=== PATIENT | female | born 1990 | race Caucasian/White ===

== ENCOUNTER 2017-04-24 16:19 | Emergency (ER) | payer BC ==
[2017-04-24 16:28] VITALS: RESP 16
[2017-04-24] MEDS ORDERED: NS 1,000 ML IV ONE (17:04)
[2017-04-24 17:33] LABS: % IMMATURE GRANULYOCYTES 0.4 % (0.0-1.1); ABSOLUTE IMMATURE GRANULOCYTES 0.05 10^3/uL (0.00-0.10); ADD DIFF? NO; ADD MORPH? NO; ADD SCAN? NO; ATYPICAL LYMPHOCYTE FLAG 20 (0-99); FRAGMENT RBC FLAG 0 (0-99); HEMATOCRIT 44.1 % (38.0-47.0); HEMOGLOBIN 14.4 g/dL (12.6-16.3); LEFT SHIFT FLG 0 (0-99); LIPEMIA HEMOLYSIS FLAG 80 (0-99); MEAN CELL HEMOGLOBIN 28.3 pg (27.9-34.1); MEAN CELL HEMOGLOBIN CONCENTR. 32.7 g/dL (32.4-36.7); MEAN CELL VOLUME 86.6 fL (81.5-99.8); MEAN PLATELET VOLUME 10.5 fL (8.7-11.7); PLATELET CLUMPS FLAG 10 (0-99); PLATELET COUNT 302 10^3/uL (150-400); RED BLOOD CELL COUNT 5.09 10^6/uL (4.18-5.33); RED CELL DISTRIBUTION WIDTH 13.9 % (11.5-15.2)
[2017-04-24 17:36] LABS: COLOR YELLOW; LEUKOCYTE ESTERASE,URINE 3+ (NEGATIVE); NITRITE,URINE NEGATIVE (NEGATIVE)
[2017-04-24 17:38] LABS: MUCUS 2+ /lpf (NONE-1+); WBC,URINE 50-182 /hpf (0-3)
[2017-04-24 17:49] LABS: ANION GAP 11 mEq/L (8-16); CALCIUM 9.9 mg/dL (8.5-10.4); CARBON DIOXIDE 25 mEq/l (22-31); CHLORIDE 101 mEq/L (97-110); CREATININE 0.9 mg/dL (0.6-1.0); GLOMERULAR FILTRATION RATE > 60; GLUCOSE 86 mg/dL (70-100); SODIUM 137 mEq/L (134-144)
[2017-04-24] MEDS ORDERED: fentaNYL 100 MCG/2 ML INJ IVP ONE (18:42)
[2017-04-24 19:42] VITALS: O2SAT 96
--- NOTE | 2017-04-24 20:10 | EDPHY ---
H & P Stated Complaint: pelvic cramping, mild spotting since this am Time Seen by Provider: 04/24/17 17:02 HPI/ROS: Chief complaint: Pelvic pain with vaginal bleeding History of present illness: This is a 27-year-old female who presents to the emergency department for evaluation of pelvic pain and vaginal bleeding. Patient has had pelvic pain for a number of days. However, it worsened this morning after sexual intercourse. Further, she noted bright red blood from the vagina after sexual intercourse. She is not currently on her menstrual cycle. The pain has been persistent although the bleeding has resolved. She denies other associated signs or symptoms including no fevers, no nausea, vomiting or diarrhea, no urinary symptoms, no diarrhea or constipation. She does have a ParaGard IUD in place that has been in place for nine and a half years and states she needs to get it out. She has an appointment with an OBGYN but it is not until early May. Review of systems: A 10 point review of systems was obtained and other than described above was negative - Personal History LMP (Females 10-55): 8-14 Days Ago Current Tetanus/Diphtheria Vaccine: Unsure Current Tetanus Diphtheria and Acellular Pertussis (TDAP): Unsure - Medical/Surgical History Hx Asthma: Yes Hx Chronic Respiratory Disease: No Hx Diabetes: No Hx Cardiac Disease: No Hx Renal Disease: No Hx Cirrhosis: No Hx Alcoholism: No Hx HIV/AIDS: No Hx Splenectomy or Spleen Trauma: No Other PMH: no abd surgeries. L5s1 microdisectomy 2006. asthma - Social History Smoking Status: Never smoked - Physical Exam Exam: General Appearance: Alert, nontoxic. Eyes: Pupils equal and round no pallor or injection. ENT, Mouth: Mucous membranes moist. Respiratory: There are no retractions, lungs are clear to auscultation. Cardiovascular: Regular rate and rhythm. Gastrointestinal: Bowel sounds are normal. Abdomen is soft, nondistended and nontender to palpation. Neurological: Alert and oriented x4. Strength and sensation intact and symmetrical. Patient is ambulating without difficulty. Skin: Warm and dry, no rashes. Musculoskeletal: Neck is supple non tender. Extremities are symmetrical, full range of motion. Psychiatric: Patient is oriented X 3, there is no agitation. Constitutional: Initial Vital Signs Temperature (C) 37.0 C 04/24/17 16:23 Heart Rate 88 04/24/17 16:23 Respiratory Rate 16 04/24/17 16:23 Blood Pressure 156/106 H 04/24/17 16:23 O2 Sat (%) 97 04/24/17 16:23 O2 Delivery Mode Room Air Allergies/Adverse Reactions: metoclopramide [From Reglan] Allergy (Verified 04/24/17 16:22) Sulfa (Sulfonamide Antibiotics) Allergy (Verified 04/24/17 16:22) Home Medications: Medication Instructions Recorded Albuterol 04/24/17 Doxycycline Inj [Vibramycin Inj] 100 mg IV BID 14 Days vial 04/24/17 Effexor 04/24/17 Propranolol HCl 04/24/17 Valium 04/24/17 metroNIDAZOLE [Flagyl 500 mg (*)] 500 mg PO BID 14 Days tab 04/24/17 Medical Decision Making - Diagnostics Imaging Results: Imaging Impressions Pelvic/Renal Ultrasound 04/24/17 17:17 Impression: 1. IUD is in the lower uterine segment without covering the endometrium in the uterine body. 2. Subserosal uterine fibroids. Findings discussed with HAYES Mcgrath at 19:02 hour, 04/24/2017. Pelvis X-Ray 04/24/17 21:58 Impression: 1. IUD remnant remains within the pelvis to the left of midline. Imaging: Discussed imaging studies w/ transformer repairer Radiologist, I viewed and interpreted images myself Procedures: Pelvic Exam: The vulva was normal no lesions. The vagina had white to yellow discharge. The cervix was closed but there was some blood and yellow drainage. The uterus was tender on bimanual examination. The adnexa had no masses and no tenderness. The exam was performed with a part time receptionist. Procedure: IUD removal Indication: Improperly located, length of use now with pelvic pain and bleeding Procedure: The strings were easily identified. Using forceps gentle traction was applied and the IUD easily came out. Patient tolerated the procedure well. However, IUD appeared to be grossly deformed on removal. Follow-up x-ray did show a retained piece of IUD in the uterus. ED Course/Re-evaluation: Patient is discussed with my secondary supervising physician Dr. Damaris Gonzalez. Patient presents to the emergency department with pelvic pain and vaginal bleeding. On presentation she is nontoxic. Afebrile and vital signs are stable. Initial physical exam is unremarkable except for pelvic exam with significant discharge. Laboratory studies unremarkable. Urinalysis is potentially concerning for urinary tract infection. Ultrasound shows IUD that does not appear to be properly and place. I am concerned for pelvic infection on patient. She will be started on antibiotics. Patient did request that her IUD be removed. I believe this is appropriate given concern for pelvic infection and length of use. We discussed removing it. The strings were easily identified it was gently removed and easily slid out. However upon coming out it appeared grossly deformed. I was concerned for retained pieces and a pelvic x-ray was obtained that did reveal a retained piece. I have consulted with OBGYN, Dr. Shanda Arthur. She is comfortable with patient following up on an outpatient basis for her presenting complaints as well as the retained piece of IUD. We have agreed on treating patient for a suspected pelvic infection with Rocephin, doxycycline and Flagyl. Home care is discussed with the patient. Strict return precautions are given. Patient voiced understanding and agreement with plan. Differential Diagnosis: Included but not limited to vaginal infections of multiple etiologies, PID, ovarian cyst, ovarian torsion, tubo-ovarian abscess, with associated complications, urinary tract infection - Data Points Laboratory Results: Laboratory Results 04/24/17 17:20 04/24/17 17:20 04/24/17 04/24/17 04/24/17 19:34 19:34 17:20 WBC RBC Hgb Hct MCV MCH MCHC RDW Plt Count MPV Neut % (Auto) Lymph % (Auto) Gregg % (Auto) Eos % (Auto) Baso % (Auto) Nucleat RBC Rel Count Absolute Neuts (auto) Absolute Lymphs (auto) Absolute Monos (auto) Absolute Eos (auto) Absolute Basos (auto) Absolute Nucleated RBC Immature Gran % Immature Gran # Sodium Potassium Chloride Carbon Dioxide Anion Gap BUN Creatinine Estimated GFR Glucose Calcium Beta HCG, Qual NEGATIVE Urine Color Urine Appearance Urine pH Ur Specific [place] Urine Protein Urine Ketones Urine Blood Urine Nitrate Urine Bilirubin Urine Urobilinogen Ur Leukocyte Esterase Urine RBC Urine WBC Ur Epithelial Cells Urine Mucus Urine Glucose Trichomonas (Wet Prep) NO YEAST C.trachomatis RNA (TMA) Pending N.gonorrhoeae RNA (TMA) Pending 04/24/17 04/24/17 04/24/17 17:20 17:20 17:20 WBC 12.63 10^3/uL H 10^3/uL (3.80-9.50) RBC 5.09 10^6/uL 10^6/uL (4.18-5.33) Hgb 14.4 g/dL g/dL (12.6-16.3) Hct 44.1 % % (38.0-47.0) MCV 86.6 fL fL (81.5-99.8) MCH 28.3 pg pg (27.9-34.1) MCHC 32.7 g/dL g/dL (32.4-36.7) RDW 13.9 % % (11.5-15.2) Plt Count 302 10^3/uL 10^3/uL (150-400) MPV 10.5 fL fL (8.7-11.7) Neut % (Auto) 73.6 % % (39.3-74.2) Lymph % (Auto) 16.9 % % (15.0-45.0) Gregg % (Auto) 8.1 % % (4.5-13.0) Eos % (Auto) 0.6 % % (0.6-7.6) Baso % (Auto) 0.4 % % (0.3-1.7) Nucleat RBC Rel Count 0.0 % % (0.0-0.2) Absolute Neuts (auto) 9.30 10^3/uL H 10^3/uL (1.70-6.50) Absolute Lymphs (auto) 2.13 10^3/uL 10^3/uL (1.00-3.00) Absolute Monos (auto) 1.02 10^3/uL H 10^3/uL (0.30-0.80) Absolute Eos (auto) 0.08 10^3/uL 10^3/uL (0.03-0.40) Absolute Basos (auto) 0.05 10^3/uL 10^3/uL (0.02-0.10) Absolute Nucleated RBC 0.00 10^3/uL 10^3/uL (0-0.01) Immature Gran % 0.4 % % (0.0-1.1) Immature Gran # 0.05 10^3/uL 10^3/uL (0.00-0.10) Sodium 137 mEq/L mEq/L (134-144) Potassium 4.0 mEq/L mEq/L (3.5-5.2) Chloride 101 mEq/L mEq/L (97-110) Carbon Dioxide 25 mEq/l mEq/l (22-31) Anion Gap 11 mEq/L mEq/L (8-16) BUN 15 mg/dL mg/dL (7-23) Creatinine 0.9 mg/dL mg/dL (0.6-1.0) Estimated GFR > 60 Glucose 86 mg/dL mg/dL (70-100) Calcium 9.9 mg/dL mg/dL (8.5-10.4) Beta HCG, Qual Urine Color YELLOW Urine Appearance HAZY Urine pH 5.0 (5.0-7.5) Ur Specific [place] 1.029 (1.002-1.030) Urine Protein NEGATIVE (NEGATIVE) Urine Ketones NEGATIVE (NEGATIVE) Urine Blood NEGATIVE (NEGATIVE) Urine Nitrate NEGATIVE (NEGATIVE) Urine Bilirubin NEGATIVE (NEGATIVE) Urine Urobilinogen NEGATIVE EU EU (0.2-1.0) Ur Leukocyte Esterase 3+ H (NEGATIVE) Urine RBC 1-3 /hpf /hpf (0-3) Urine WBC 50-182 /hpf H /hpf (0-3) Ur Epithelial Cells TRACE /lpf /lpf (NONE-1+) Urine Mucus 2+ /lpf H /lpf (NONE-1+) Urine Glucose NEGATIVE (NEGATIVE) Trichomonas (Wet Prep) C.trachomatis RNA (TMA) N.gonorrhoeae RNA (TMA) Medications Given: Discontinued Medications Hydrocodone Bitart/Acetaminophen ([place] 5/325mg Prepack#6) 1 btl TAKEHOME EDNOW ONE Stop: 04/24/17 22:04 Last Admin: 04/24/17 22:11 Dose: 1 btl Doxycycline Hyclate (Doxycycline Hyclate) 100 mg PO EDNOW ONE PRN Reason: Protocol Stop: 04/24/17 20:19 Last Admin: 04/24/17 20:35 Dose: 100 mg Fentanyl (Sublimaze) 50 mcg IVP EDNOW ONE Stop: 04/24/17 18:43 Last Admin: 04/24/17 18:48 Dose: 50 mcg Sodium Chloride (Ns) 1,000 mls @ 0 mls/hr IV EDNOW ONE; Wide Open PRN Reason: Protocol Stop: 04/24/17 17:05 Last Admin: 04/24/17 17:28 Dose: 1,000 mls Metronidazole (Flagyl) 500 mg PO EDNOW ONE PRN Reason: Protocol Stop: 04/24/17 20:19 Last Admin: 04/24/17 20:34 Dose: 500 mg Departure - Departure Disposition: Home, Routine, Self-Care Clinical Impression: Pelvic pain Condition: Good Instructions: Hydrocodone/Acetaminophen (By mouth), Pelvic Pain in Women (ED) Additional Instructions: Please call next week to arrange a follow-up appointment with OBGYN Please note it appears a piece of your IUD is still in the uterus Take antibiotics as prescribed until finished In regards to pain control see the following: Use ibuprofen [600] mg [3] times a day for the next 2-3 days for pain In addition You have been prescribed [[place]] for pain. [[place]] contains Tylenol, do not take extra Tylenol/acetaminophen/Apap with it. It is sedating. If symptoms worsen or new symptoms develop return to the emergency room for recheck Referrals: NONE *PRIMARY CARE P,. [Primary Care Provider] - As per Instructions Shanda Arthur MD [Medical Doctor] - As per Instructions Prescriptions: Doxycycline Inj [Vibramycin Inj] 100 mg IV BID 14 Days vial metroNIDAZOLE [Flagyl 500 mg (*)] 500 mg PO BID 14 Days tab
[2017-04-24] MEDS ORDERED: metroNIDAZOLE 500 MG TAB PO ONE (20:18)
[2017-04-24] MEDS ORDERED: DOXYCYCLINE HYCLATE 100 MG CAP/TAB PO ONE (20:18)
[2017-04-24] MEDS ORDERED: HYDROCOD/APAP 5/325 PREPACK#6 BTL TAKEHOME ONE (22:03)
[2017-04-24 22:31] VITALS: BP 114/80; PULSE 79; TEMP 97.9
[2017-04-26 13:16] LABS: CHLAMYDIA AMPLIFICATION GENPRB POSITIVE (NEGATIVE)
== END 2017-04-24 22:31 | disposition home or self-care (01) ==
DX: R10.2 Pelvic and perineal pain (principal); J45.909 Unspecified asthma, uncomplicated; E86.9 Volume depletion, unspecified
CPT/HCPCS: 96374; J3010

== ENCOUNTER 2017-09-02 05:46 | Day surgery (SDC) | payer BC ==
--- NOTE | 2017-08-26 18:19 | GHP ---
[f rep st] PREOP HISTORY AND PHYSICAL DATE OF ADMISSION: 09/02/2017 PREOPERATIVE DIAGNOSIS: Embedded IUD. SURGERY TO BE PERFORMED: Hysteroscopic removal of an embedded IUD. HISTORY OF PRESENT ILLNESS: The patient is a 27-year-old, 0, who originally presented to the [facility] emergency room on April 24, 2017, with complaints of acute onset of pelv ic plain and vaginal bleeding. She had a Paragard IUD that had been placed approximately 9-1/2 years ago. She had an episode of pelvic pain for several days; however, worsening dramatically the mornin g of April 24 after intercourse. She had bright red blood when she was not currently on her men strual cycle. She was seen in the emergency department and determined that the IUD was in the incorr ect location. It was removed without difficulty; however, the IUD was not complete upon removal, and an x-ray demonstrated that there was a persistent arm of the IUD projecting to the left in the midli ne within the mid pelvis. On x-ray and on ultrasound, it was seen to be in the lower uterine segment without covering the endometrium in the uterine body. She also had some small subserosal fibroids t hat were seen. The patient was seen by me for consultation. Incidentally, she was also diagnosed wi th chlamydia on that visit, and she was treated with Rocephin and p.o. doxycycline and Flagyl to comp lete a course for PID. In April when I first saw her, I offered her surgical removal of the arm of the IUD or an attempted office procedure under ultrasound guidance. We attempted that on June 04 with ultrasound guidance; however, it was unsuccessful. We were not able to get the arm of the IUD removed due to patient discomfort as well as difficulty in the ultrasound room. Therefore, the d ecision was made to do it in the operating room. The patient had insurance issues and was not able t o schedule until the beginning of the new year. Fortunately, she has not had any pain or symptoms du e to this embedded IUD. I also placed her on oral contraceptive pills, Loestrin 120, and she is doin g well without side effects. In June, patient was evaluated for a possible UTI, and a repeat chl amydia culture was done which was equivocal, so she and her partner were treated again with a course of doxycycline. I repeated that test today on her preop to ensure that she has a complete test of cu re and no reinfection. The patient has no chronic medical history or medical conditions. She has mi ld depression and anxiety. She takes Effexor 75 mg a day. She does have back pain and a herniated d isk and has had a microdiskectomy in 2006, L5-S1. She has sports-induced asthma, but it is not debil itating. Her only surgical history is that microdiskectomy for her lumbar spine. PAST OB HISTORY: She has never been . PAST GYNECOLOGICAL HISTORY: She has a normal menstrual triad with menarche at age 11, monthly period s every 5 days. They are moderate flow, moderate cramps when she is using her ParaGard. They are li ghter now on oral contraceptive pills. She has a history of chlamydia. No other STDs. She does hav e a history of an abnormal Pap. Repeat Pap was normal, and most recent Paps have been normal. SOCIAL HISTORY: She has a boyfriend for 4 months. 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 She denies tobacco, alco hol use 2-3 times a week. She admits to daily medical marijuana use secondary to back pain. No othe r substances. Caffeine daily. Moderate exercise, hiking and skiing in the winter. CURRENT MEDICATIONS: Include Effexor XL 75 mg daily and Vicodin p.r.n. for back pain. ALLERGIES: She is allergic to sulfa drugs, which cause hives and Reglan, she has a psychiatric react ion. She also is allergic to PABA. REVIEW OF SYSTEMS: Negative except for as pertinent in HPI as above. FAMILY HISTORY: Father has alcoholism. Maternal grandfather had diabetes and heart disease, also ki dney disease. Grandmother has lung disease. All grandparents have had a form of cancer. No other c lose relatives. OBJECTIVE: VITAL SIGNS: Blood pressure is 132/78, weight is 207 pounds. GENERAL: She is a well-de veloped, obese white female in no acute distress. LUNGS: Clear to auscultation bilaterally. HEART: Regular rate and rhythm. No murmur. ABDOMEN: Soft, nontender, nondistended. Normal bowel sounds . PELVIC: Normal external genitalia. Normal nulliparous cervix. Uterus is anteverted, anteflexed, mobile, nontender. ASSESSMENT AND PLAN: A 27-year-old, 0 with a partially embedded IUD arm in her cervix, faile d removal attempt in the office. We will do it with hysteroscopic guidance. She is scheduled for hy steroscopic removal of an embedded IUD with ultrasound guidance. The patient was consented for the p rocedure. She understood the risks and benefits. The risks including bleeding, infection, damage to the uterus including possible perforation of the uterus or the cervix, need for additional procedure s, and inability to complete the procedure. She understood these risks and benefits and agreed to pr oceed. /[id number]/MODL
[2017-09-02] MEDS ORDERED: ceFAZolin 2 GM/SWFI 2 GM/20 ML SYR IVP ONE (06:02)
[2017-09-02] MEDS ORDERED: LR 1,000 ML IV ONE (06:03)
[2017-09-02] MEDS ORDERED: SILVER NITRATE APPLICATOR 1 APPL TP ONE (07:06)
[2017-09-02] MEDS ORDERED: MIDAZOLAM 2 MG/2 ML VIAL IVP ONE (07:06)
--- NOTE | 2017-09-02 07:14 | PDANEPAE ---
ANE History of Present Illness Hysteroscopy IUD removal ANE Past Medical History - Cardiovascular History Hx Hypertension: No Hx Arrhythmias: No Hx Chest Pain: No Hx Coronary Artery / Peripheral Vascular Disease: No Hx CHF / Valvular Disease: No Hx Palpitations: No - Pulmonary History Hx COPD: No Hx Asthma/Reactive Airway Disease: Yes Hx Recent Upper Respiratory Infection: No Hx Oxygen in Use at Home: No Hx Sleep Apnea: No Sleep Apnea Screening Result - Last Documented: Negative Pulmonary History Comment: mild asthma- instructed pt to bring inhaler - Neurologic History Hx Cerebrovascular Accident: No Hx Seizures: No Hx Dementia: No - Endocrine History Hx Diabetes: No Hypothyroid: No Hyperthyroid: No Obesity: mild - Renal History Hx Renal Disorders: No - Liver History Hx Hepatic Disorders: No - Neurological & Psychiatric Hx Hx Neurological and Psychiatric Disorders: Yes Neurological / Psychiatric History Comment: anxiety. depression - Cancer History Hx Cancer: No - Congenital Disorder History Hx Congenital Disorders: No - GI History Hx Gastrointestinal Disorders: No - Other Health History Other Health History: none - Chronic Pain History Chronic Pain: No - Surgical History Prior Surgeries: tubes as child. spine surgery 2006 ANE Review of Systems Review of systems is: negative Review of Systems: - Exercise capacity METS (RN): 4 METS - Systems Gastrointestinal: Reports: no symptoms ANE Patient History - Allergies Allergies/Adverse Reactions: metoclopramide [From Reglan] Allergy (Verified 08/19/17 16:00) made patient super restless Sulfa (Sulfonamide Antibiotics) Allergy (Verified 08/19/17 16:00) as child caused a rash PABA Allergy (Uncoded 08/19/17 16:01) old sunscreen that caused rash and hives - Home Medications Home medications: home medication list seen and reviewed Home Medications: Valium 04/24/17 [Last Taken 08/26/17] Lexapro 08/19/17 [Last Taken 09/01/17] Loestrin 21 1-20 Tablet 08/19/17 [Last Taken 09/01/17] Ventolin Hfa Inhaler 08/19/17 [Last Taken 08/03/17] - NPO status NPO Since - Liquids (Date): 09/01/17 NPO Since - Liquids (Time): 22:30 NPO Since - Solids (Date): 09/01/17 NPO Since - Solids (Time): 20:30 - Anes Hx Anes Hx: no prior problems - Smoking Hx Smoking Status: Never smoked Marijuana use: Yes - Alcohol Use Alcohol Use: Occasionally - Family Anes Hx Family Anes Hx: none Family Hx Anesthesia Complications: none ANE Labs/Vital Signs - Vital Signs Blood Pressure: 125/73 Heart Rate: 74 Respiratory Rate: 16 O2 Sat (%): 96 Height: 167.64 cm Weight: 81.647 kg ANE Physical Exam - Airway Neck exam: FROM Mallampati Score: Class 2 Mouth exam: normal dental/mouth exam - Pulmonary Pulmonary: no respiratory distress, no rales or rhonchi - Cardiovascular Cardiovascular: regular rate and rhythym - ASA Status ASA Status: II ANE Anesthesia Plan Anesthesia Plan: GA w LMA
--- NOTE | 2017-09-02 07:15 | PDANEPAE ---
ANE Past Medical History - Cardiovascular History Hx Hypertension: No Hx Arrhythmias: No Hx Chest Pain: No Hx Coronary Artery / Peripheral Vascular Disease: No Hx CHF / Valvular Disease: No Hx Palpitations: No - Pulmonary History Hx COPD: No Hx Asthma/Reactive Airway Disease: Yes Hx Recent Upper Respiratory Infection: No Hx Oxygen in Use at Home: No Hx Sleep Apnea: No Sleep Apnea Screening Result - Last Documented: Negative Pulmonary History Comment: mild asthma- instructed pt to bring inhaler - Neurologic History Hx Cerebrovascular Accident: No Hx Seizures: No Hx Dementia: No - Endocrine History Hx Diabetes: No Hypothyroid: No Hyperthyroid: No Obesity: mild - Renal History Hx Renal Disorders: No - Liver History Hx Hepatic Disorders: No - Neurological & Psychiatric Hx Hx Neurological and Psychiatric Disorders: Yes Neurological / Psychiatric History Comment: anxiety. depression - Cancer History Hx Cancer: No - Congenital Disorder History Hx Congenital Disorders: No - GI History Hx Gastrointestinal Disorders: No - Other Health History Other Health History: none - Chronic Pain History Chronic Pain: No - Surgical History Prior Surgeries: tubes as child. spine surgery 2006 ANE Review of Systems Review of Systems: - Exercise capacity METS (RN): 4 METS ANE Patient History - Allergies Allergies/Adverse Reactions: metoclopramide [From Reglan] Allergy (Verified 08/19/17 16:00) made patient super restless Sulfa (Sulfonamide Antibiotics) Allergy (Verified 08/19/17 16:00) as child caused a rash PABA Allergy (Uncoded 08/19/17 16:01) old sunscreen that caused rash and hives - Home Medications Home Medications: Valium 04/24/17 [Last Taken 08/26/17] Lexapro 08/19/17 [Last Taken 09/01/17] Loestrin 21 1-20 Tablet 08/19/17 [Last Taken 09/01/17] Ventolin Hfa Inhaler 08/19/17 [Last Taken 08/03/17] - NPO status NPO Since - Liquids (Date): 09/01/17 NPO Since - Liquids (Time): 22:30 NPO Since - Solids (Date): 09/01/17 NPO Since - Solids (Time): 20:30 - Smoking Hx Smoking Status: Never smoked - Alcohol Use Alcohol Use: Occasionally - Family Anes Hx Family Hx Anesthesia Complications: none ANE Labs/Vital Signs - Vital Signs Blood Pressure: 125/73 Heart Rate: 74 Respiratory Rate: 16 O2 Sat (%): 96 Height: 167.64 cm Weight: 81.647 kg
--- NOTE | 2017-09-02 07:21 | PDHPUP ---
History & Physical Update H&P update statement: This history and physical update is based on an assessment of the patient which was completed after admission or registration (within 24 hours), but prior to the surgery/procedure.
[2017-09-02] MEDS ORDERED: ONDANSETRON 4 MG/2 ML VIAL ONE (07:22)
[2017-09-02] MEDS ORDERED: GLYCOPYRROLATE 0.2 MG/1 ML VIAL ONE (07:22)
[2017-09-02] MEDS ORDERED: KETOROLAC 30 MG/1 ML SDV ONE (07:22)
[2017-09-02] MEDS ORDERED: PROPOFOL/EMULSION 500 MG/50 ML BOTTLE IV ONE (07:22)
[2017-09-02] MEDS ORDERED: DEXAMETHASONE 4 MG/ML VIAL ONE (07:22)
[2017-09-02] MEDS ORDERED: fentaNYL 100 MCG/2 ML INJ ONE ×2 (07:22)
[2017-09-02] MEDS ORDERED: LIDOCAINE 2% 5 ML SDV ONE (07:23)
[2017-09-02] MEDS ORDERED: PROPOFOL 200 MG/20 ML VIAL ONE ×2 (07:51→07:53)
[2017-09-02] MEDS ORDERED: IBUPROFEN 600 MG TAB PO PRN (08:13)
--- NOTE | 2017-09-02 08:18 | POSTOPPROG ---
Post Op Note Date of Operation: 09/02/17 Surgeon: Shanda Arthur Anesthesiologist: chaitanya waller Anesthesia: GET(General Endotracheal) Pre-op Diagnosis: embedded segment of IUD Post-op Diagnosis: same Indication: embedded segment of IUD Procedure: Hysteroscopic removal of embedded IUD with ultrasound guidance Findings: IUD arm embedded at internal os Inf/Abcess present in the surg proc area at time of surgery?: No Depth: Organ Space EBL: Minimal Total fluids administered: 700 Specimen(s): IUD arm
[2017-09-02] MEDS ORDERED: ONDANSETRON 4 MG/2 ML VIAL IVP PRN (08:20)
[2017-09-02] MEDS ORDERED: HYDROmorphONE/DILAUDID 1 MG/ML INJ IVP PRN (08:20)
[2017-09-02] MEDS ORDERED: NALOXONE HCL 0.4 MG/ML INJ IVP PRN (08:20)
[2017-09-02] MEDS ORDERED: OXYCODONE/APAP 5/325 TAB PO PRN (08:20)
[2017-09-02] MEDS ORDERED: PROMETHAZINE HCL 25 MG/ML INJ IVP PRN (08:20)
[2017-09-02] MEDS ORDERED: HYDROCODONE/APAP 5/325 TAB PO PRN (08:20)
[2017-09-02] MEDS ORDERED: ALBUTEROL 3 ML DEYVIAL IH PRN (08:20)
[2017-09-02] MEDS ORDERED: LR 500 ML IV PRN (08:20)
[2017-09-02] MEDS ORDERED: fentaNYL 100 MCG/2 ML INJ IVP PRN (08:20)
--- NOTE | 2017-09-02 08:22 | POSTANESTH ---
Post Anesthetic Evaluation Cardiovascular Status: Normal, Stable Respiratory Status: Normal, Stable Level of Consciousness/Mental Status: Can Participate in Eval Pain Control: Adequate, Prn Tx Ordered Nausea/Vomiting Control: Adequate, Prn Tx Ordered Complications Possibly Related to Anesthesia: None Noted
--- NOTE | 2017-09-02 09:01 | GOP ---
[f rep st] OPERATIVE REPORT DATE OF OPERATION: 09/02/2017 SURGEON: Shanda Arthur MD ANESTHESIA: General anesthesia. ANESTHESIOLOGIST: Nella Boss MD. PREOPERATIVE DIAGNOSIS: Retained segment of an intrauterine device. POSTOPERATIVE DIAGNOSIS: Retained segment of an intrauterine device. PROCEDURE PERFORMED: Hysteroscopic removal of an embedded intrauterine device. FINDINGS: ESTIMATED BLOOD LOSS: For the procedure was less than 10 cc. INDICATIONS: The patient is a 27-year-old, 0 who presented to [facility] in April of 2007 with complaints of acute onset of pelvic pain, vaginal bleeding. Sh keri had a ParaGard IUD that had been placed approximately 9-1/2 years ago and an episode of pelvic pain for several days, worsening dramatically. In the emergency room, she was diagnosed with PID and hua ated appropriately. The ER doctor attempted to remove the ParaGard IUD. It was removed, however, it appeared to be incomplete with only 1 arm and the stem present. Ultrasound evaluation revealed the arm of the IUD embedded in the left portion of her cervix at the level of the internal os. I evaluat ed her in the office and attempted to remove it with ultrasound guidance in the office, which was uns uccessful. Patient could not tolerate the procedure. Therefore, we decided to take her to the opera ting room for surgical removal of the IUD. Patient understood the risks and benefits. The risks inc luding bleeding, infection, damage to the uterus including possible risk of perforation, damage to ot her organs if perforation were to occur, and need for additional procedures and inability to complete the procedure, which could compromise future fertility. She understood these risks and benefits and agreed to proceed. DESCRIPTION OF PROCEDURE: Patient was taken to the operating room where she was placed under general anesthesia without difficulty. She was prepped and draped in the dorsal lithotomy position. She perez d previously drained her bladder. After a WHO time-out was performed, an open-sided speculum was naty megan in the vagina, and an atraumatic tenaculum was used to grasp the anterior lip of the cervix. The uterus sounded to 8 cm. The cervix was progressively dilated with Johnson dilators to a #6-1/2. The true clear hysteroscope was then gently advanced from the cervix and the arm of the IUD was visualize d at the level of the cervical os. Prior to dilation, an ultrasound was performed in the operating ro om and did confirm the presence of the IUD arm at that location. The hysteroscope was removed and th e rigid IUD grasper was placed through the cervix and with palpation, was grasped and removed without difficulty. Final look with the hysteroscope revealed no trauma. No episodes of bleeding and final look with the ultrasound confirmed the IUD arm was completely removed. Patient tolerated the proced ure well. There was minimal bleeding at the anterior lip of the cervix upon removal of the tenaculum . Sponge, lap, needle, and instrument counts were correct x3. Patient went to the recovery room in good condition. FLUID REPLACEMENT: 700 cc. Hysteroscopic fluid deficit was 90 cc. /[id number]/MODL
[2017-09-02 09:10] VITALS: O2SAT 96
[2017-09-02 09:38] VITALS: BP 110/77; PULSE 77; RESP 17; TEMP 208.8
== END 2017-09-02 09:34 | disposition home or self-care (01) ==
LOC: FSGY 05:46
PROVIDERS: ATTEND Obstetrics & Gynecology
PROC: 0UPD8HZ Removal of Contraceptive Device from Uterus and Cervix, Via Natural or Artificial Opening Endoscopic (ICD-10-PCS; principal; 2017-09-02 07:15)
DX: Z30.432 Encounter for removal of intrauterine contraceptive device (principal); T83.39XA Other mechanical complication of intrauterine contraceptive device, initial encounter; Y82.8 Other medical devices associated with adverse incidents; R10.2 Pelvic and perineal pain; Z88.2 Allergy status to sulfonamides
CPT/HCPCS: J0690; J1100; J1885; J2250; J2405; J2704; J3010